=== PATIENT | female | born 1975 | race Two or more races ===

== ENCOUNTER 2024-02-12 07:45 | Day surgery (SDC) | payer OTHER ==
[2024-02-12] MEDS ORDERED: LIDOCAINE HCL/PF 2% SDV 5ML VIAL ONE (07:51)
[2024-02-12] MEDS ORDERED: PROPOFOL 160 ML ONE (07:51)
[2024-02-12 08:09] VITALS: BMI 29.8
[2024-02-12 09:22] VITALS: PULSE 65; RESP 16; TEMP 98.8
[2024-02-12 10:10] VITALS: BP 117/76
== END 2024-02-12 09:50 | disposition home or self-care (01) ==
LOC: FASU-ENDO 07:45
PROVIDERS: ATTEND Internal Medicine Gastroenterology
PROC: 0DB98ZX Excision of Duodenum, Via Natural or Artificial Opening Endoscopic, Diagnostic (ICD-10-PCS; 2024-02-12)
PROC: 0DB68ZX Excision of Stomach, Via Natural or Artificial Opening Endoscopic, Diagnostic (ICD-10-PCS; 2024-02-12)
PROC: 0DJD8ZZ Inspection of Lower Intestinal Tract, Via Natural or Artificial Opening Endoscopic (ICD-10-PCS; principal; 2024-02-12 08:48)
DX: Z12.11 Encounter for screening for malignant neoplasm of colon (principal); D50.9 Iron deficiency anemia, unspecified; K29.50 Unspecified chronic gastritis without bleeding
CPT/HCPCS: 43239; G0121; 81025; 88305-TC; 88342-TC